=== PATIENT | female | born 1980 | race Caucasian/White ===

== ENCOUNTER 2021-09-17 13:30 | Emergency (ER) | payer MEDICAID, OTHER ==
[~2021-09-17] VITALS: Ht 157.5 cm; Wt 125.0 kg
[~2021-09-17 13:30] MED LIST: CRUT1EAC36; NO HOME MEDS
[2021-09-17 13:49] VITALS: BP 172/100
== END 2021-09-17 15:32 | disposition left against medical advice (07) ==
LOC: ER 13:30
DX: R03.0 Elevated blood-pressure reading, without diagnosis of hypertension (principal); Z53.21 Procedure and treatment not carried out due to patient leaving prior to being seen by health care provider